=== PATIENT | female | born 1935 | race Caucasian/White ===

== ENCOUNTER 2020-11-23 08:49 | Outpatient (RCR) | payer MEDICARE, OTHER, SELFPAY | END 2020-11-25 11:35 | disposition home or self-care (01) | LOC: HO.WCC 08:49 | PROVIDERS: PCP Family Medicine; Visit Provider Physician Assistant | DX: L97.511 Non-pressure chronic ulcer of other part of right foot limited to breakdown of skin (principal); M20.11 Hallux valgus (acquired), right foot | CPT/HCPCS: 99202 ==